=== PATIENT | female | born 1995 | race Caucasian/White ===

== ENCOUNTER → 2021-10-19 08:16 | Outpatient (CLI) | payer BC, SELFPAY ==
--- NOTE | ~2021-10-19 | MR_ITS ---
EXAMINATION: MR knee RT wo con DATE: 10/19/2021 09:31 INDICATION: Analyzed right knee pain TECHNIQUE: Magnetic resonance imaging (MRI) of the right knee was performed without intravenous contr ast. Sequences included coronal PD-weighted FSE, coronal PD-weighted FS FSE, sagittal T2-weighted FS E, sagittal PD-weighted FS FSE and axial PD weighted fat saturated FSE. COMPARISON: None. FINDINGS: Medial compartment: Medial meniscus is normal. Articular cartilage is normal. Lateral compartment: Lateral meniscus is normal. Articular cartilage is normal. Patellofemoral compartment: There is deep chondral fissuring with underlying cortical irregularity at the patella and along the a pical ridge and extending into the immediately adjacent medial and lateral facets. There are multiple tiny drill tracts extending anteroposteriorly through the patella to the subchondral bone suggesting possible prior for a patellar osteochondral lesion. Correlate with surgical history. Trochlear carti geovany is normal. Ligaments and tendons: Anterior and posterior cruciate ligaments are normal. The medial collateral ligament and fibular vance ateral ligament complex are normal. The extensor mechanism is normal. The visualized medial and later al hamstring tendons as well as the iliotibial band are normal. Fluid: Physiologic amount of fluid in the joint space. No loose osteochondral bodies identified. Osseous/other: Normal marrow signal. No fracture or pathologic marrow replacing process. IMPRESSION: 1. Deep chondral fissuring and underlying irregularity to the articular cortex at the central patella where there are changes suggesting prior drilling for microfracture treatment of an osteochondral le perez. Correlate with surgical history. 2. Otherwise normal right knee MRI with normal menisci and cartilage in the medial and lateral compar tments and normal stabilizing ligaments. Reviewed, dictated and finalized at location A. MILL SET UP OPERATOR IMPRESSION: 1. Deep chondral fissuring and underlying irregularity to the articular cortex at the central patella where there are changes suggesting prior drilling for mi crofracture treatment of an osteochondral lesion. Correlate with surgical histo ry. 2. Otherwise normal right knee MRI with normal menisci and cartilage in the med ial and lateral compartments and normal stabilizing ligaments.
== END ==
PROVIDERS: PCP Family Medicine; Visit Provider Orthopaedic Surgery
DX: M25.561 Pain in right knee (principal)
CPT/HCPCS: 73721

== ENCOUNTER → 2021-11-30 00:23 | Outpatient (CLI) | payer BC, SELFPAY ==
[2021-11-30 22:40] LABS: SARS-CoV-2 RNA PCR Negative
== END ==
PROVIDERS: PCP Family Medicine; Visit Provider Orthopaedic Surgery
DX: Z01.812 Encounter for preprocedural laboratory examination (principal); Z20.822 Contact with and (suspected) exposure to COVID-19
CPT/HCPCS: C9803; U0003; U0005

== ENCOUNTER 2021-12-04 01:08 | Day surgery (SDC) | payer BC, SELFPAY ==
[2021-12-03 10:37] VITALS: BMI 24.7
--- NOTE | 2021-12-03 10:51 | PC.NURSE ---
Report to the Outpatient Waiting Room, entrance under the green pavilion located off [facility], at time 0830 on date 12/04/21. OR Time: 1030. - You will be asked a series of questions to screen for COVID 19 for your protection. - A mask is required within the hospital. - No visitors are allowed at this time. Preoperative COVID Testing Requirements: COVID TEST 11/30 - NEGATIVE No COVID Test needed if: (proof is required; if not received patient will have Rapid Test prior to entry) - Patient has received COVID Vaccine at least 14 days prior to procedure date or - Patient has positive COVID test result within last 90 days of surgery date. COVID Test needed if above criteria is not met If not COVID vaccinated a COVID test must be conducted within 72 hours of surgery and patient is asked to isolate self from time of testing until procedure. You will go to the [facility] for your COVID testing. The [employer] [facility] site is located at the corner of [address] [facility]. You will only be called if COVID results are positive and your surgeon may reschedule your elective surgery date. Patients may have clear liquids (water, carbonated beverages, clear teas, apple juice) until 3 hours prior to surgery with a maximum of 20 ounces. - No food from midnight until time of surgery Take the following medications with a SIP of water the morning of surgery: BUSPIRONE, CONTROL Medications to discontinue per physician: N/A Date to take last dose: N/A Please no make-up, nail irish, hairspray, perfume, deodorant, or body powder the day of surgery. No jewelry (including any body piercings) or valuables the day of surgery, leave them at home. Please take a shower or bath the night before, or the morning of, surgery with an antibacterial soap. Wear comfortable, loose fitting clothing. - Jewelry must be removed prior to entering the operating room. Rings and piercings that are not removed may be cut off. - The hospital will not accept responsibility for valuables. - Please leave all valuables, including medications, at home the day of surgery. If you are going home after surgery, a licensed restaurant delivery driver must drive you home. - NO public transportation without another adult. - We recommend that an adult stay with you for 24 hours following discharge. - We also recommend that you do not drive, make important decision, drink alcoholic beverages, or take any drugs that were not prescribed by your health care provider for at least 24 hours after your discharge time. Follow any additional instructions given to you from your surgeon. Telephone instructions given to LUCIO RYAN and asked if any additional questions and then verbalized understanding. Patient advised to call surgeon office or pre surgery nurse liaison [phone] if any additional questions.
[2021-12-04] VITALS (8 sets, daily range): BP systolic 132–165; BP diastolic 85–99; PULSE 64–110; RESP 12–18; TEMP 36.1–36.9; O2SAT 99–100
--- NOTE | 2021-12-04 07:16 | WPDHPUPDATE1 ---
History and Physical Update Update Date/Time: 12/04/21 07:16 History and Physical has been reviewed, including an updated exam of the patient. There are NO changes in the patient's condition. Risks, benefits, and alternatives have been discussed and questions answered. Patient agrees to proceed with procedure.
--- NOTE | 2021-12-04 07:46 | WPDANESEPPF ---
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 Patient Data Age: 26 Gender: F Height: 1.57 m Weight: 61.24 kg Allergies Allergy/AdvReac Type Severity Reaction Status Date / Time No Known Allergies Allergy Verified 12/04/21 09:08 Home Medications Medication Instructions Recorded Confirmed Type aluminum chloride 20 % topical 1 applic TOPICAL 2XW PRN #60 ml 06/15/20 12/04/21 Rx solution buspirone 5 mg tablet 5 mg PO BID #60 tablet 11/05/21 12/04/21 Rx norgestimate-ethinyl estradiol 1 tablet PO DAILY 12/03/21 12/04/21 History [Sprintec (28)] Patient hx anesthesia problems: none Family hx anesthesia problems: none Results Review: All pre-operative results and documents have been reviewed as part of the pre-operative evaluation. [facility] Past Medical History Medical History (Updated 12/03/21 @ 11:44 by Jose Fisher DO) Anxiety Right knee pain Social History Social History (Updated 12/02/21 @ 11:24 by Nani Romo MA) Tobacco type: e-cigarettes/vaping Alcohol intake: current Alcohol use details: 1/MONTH Substance use: never Substance use type: does not use Living arrangements: with family Additional occupation/education comments: Teacher Gender identity (if verbalized by the patient): Female Sexual Orientation (if Verbalized by the Patient): Straight or Heterosexual Spiritual care concerns: No Anes - Eval Final PreProcedure Day of Procedure 12/04/21 07:46 Patient weight: normal Heart: regular rate and rhythm Lungs: clear to auscultation and normal air movement Airway: Mallampati scale class II Neurological: alert and oriented Last oral intake: >/= 8 hours ASA classification: II Emergent: no Anesthetic plan: proceed Anesthesia type and monitoring: general LMA and standard monitoring Results Review: All pre-operative results and documents have been reviewed as part of the pre-operative evaluation. Informed Consent: The patient's anesthetic plan and its attendant risks and benefits were discussed with the patient/family/POA. Questions were solicited and answers provided to the satisfaction of the patient/family/POA.
[2021-12-04] MEDS: CELECOXIB 200 MG CAPSULE PO (09:10)
[2021-12-04] MEDS: ACETAMINOPHEN 500 MG TABLET 1000 MG PO (09:10)
[2021-12-04] MEDS: LACTATED RINGERS 1,000 ML 30 ML IV CONT ×2 (09:45→13:45)
[2021-12-04] MEDS: ceFAZolin 2 GM/D5W 50 ML 2 GM/50 ML BAG IVPB (11:58)
[2021-12-04] MEDS: BUPIVACAINE HCL 0.5% PF 30 ML VIAL 10 ML INFILTRATE (12:43)
[2021-12-04] MEDS: fentaNYL CITRATE INJ (*CRX) 100 MCG/2 ML VIAL 25 MCG IV PUSH ×5 (13:52→14:23)
--- NOTE | 2021-12-04 13:57 | W.PM.PROC2 ---
Procedure Note - Detailed Date of Procedure 12/04/21 Pre-op Diagnosis Rt Knee Chrondromalacia Patella Post-op Diagnosis same Procedure Performed RIGHT KNEE SCOPE WITH CHONDROPLASTY AND LATERAL RELEASE AND MAJOR SYNOVECTOMY Surgeon Qeu Villa MD Anesthesia general Description of Procedure PATIENT WAS TAKEN TO THE OPERATING ROOM SUITE. ANESTHESIA WAS INDUCED. THE RIGHT LEG WAS PREPPED AND DRAPED STERILE. TROCARS WERE PLACED IN TO THE KNEE JOINT IN THE USUAL FASHION. THE CAMERA WAS INTRODUCED. THERE WAS SEVERE CHONDROMALACIA TO THE PATELLA. THERE WAS MINIMAL IN THE TROCHLEA. THERE WAS A LOT OF SYNOVITIS IN ALL COMPARTMENTS. THE MEDIAL COMPARTMENT SHOWED NO CHONDROMALACIA TO THE MEDIAL FEMORAL CONDYLE OR PLATEAU. THERE WAS NO MEDIAL MENISCUS TEAR. THE ACL WAS INTACT. THE LATERAL MENISCUS WAS INTACT AND THERE WAS O TEAR. THE LATERAL COMPARTMENT HAD NO CHONDROMALACIA AT THE LATERAL PLATEAU OR LATERAL FEMORAL CONDYLE. A SYNOVECTOMY WAS PREFORMED. THE PATELLO FEMORAL JOINT UNDERWENT CHONDROPLASTY OVER THE PATELLA. THERE WAS GRADE 3 CHONDROMALACIA IN A SMALL SECTION OF THE OF THE PATELLA. SYNOVECTOMY WAS PREFORMED IN THE SUPERIOR MEDIAL COMPARTMENT. THE PATELLA WAS TRACKING WITH SOME LATERAL DISPLACEMENT. A LATERAL RETINACULAR RELEASE WAS PREFORMED PROXIMAL TO DISTAL. THE PATELLA WAS RECHECKED AND TRACKING SHOWED GOOD EXCURSION THROUGH THE GROOVE. THE BLEEDERS WERE CAUTERIZED. THE INSTRUMENTATION WAS REMOVED. THE WOUNDS WERE APPROXIMATED WITH 4.0 NYLON. STERILE DRESSING WAS APPLIED. PATIENT WAS EXTUBATED. Estimated Blood Loss -5.0 Complications No immediate complications Condition stable Disposition PACU
--- NOTE | 2021-12-04 14:13 | SUR.PHASEI ---
Simple mask removed at 1412.
[2021-12-04] MEDS: oxyCODONE HCL (*CRX) 5 MG TAB IR PO (15:19)
== END 2021-12-04 15:58 | disposition home or self-care (01) ==
PROVIDERS: PCP Family Medicine; Visit Provider Orthopaedic Surgery
PROC: (CPT 29870; principal; 2021-12-04 10:30)
DX: M22.41 Chondromalacia patellae, right knee (principal); M65.861 Other synovitis and tenosynovitis, right lower leg; F41.9 Anxiety disorder, unspecified; F17.290 Nicotine dependence, other tobacco product, uncomplicated
CPT/HCPCS: 29873; 29876; A9270; J0690; J1100; J2250; J2370; J2405; J2704; J3010; J7120

== ENCOUNTER 2024-10-29 20:56 | Emergency (ER) | payer SELFPAY ==
--- NOTE | ~2024-10-29 | XR_ITS ---
EXAMINATION: XR lumbar spine 2-3V DATE: 10/30/2024 05:17 INDICATION: Low back pain. TECHNIQUE: 3 views of lumbar spine were obtained. COMPARISON: None. FINDINGS: Bone alignment is normal. Vertebral body heights and intervertebral disc heights are normal . There is multilevel mild facet joint osteoarthritis. IMPRESSION: 1. Mild lumbar facet joint osteoarthritis. Reviewed, dictated and finalized at location A. SIOLOGY PROFESSOR
--- NOTE | ~2024-10-29 | XR_ITS ---
EXAMINATION: XR thoracic spine 3V DATE: 10/30/2024 09:03 INDICATION: Low back pain. Fall. TECHNIQUE: 3 views of thoracic spine on 4 radiographs were obtained. COMPARISON: None. FINDINGS: Alignment is normal. Vertebral body heights and intervertebral disc heights are normal. The facet joints are unremarkable. IMPRESSION: 1. Normal thoracic spine. Reviewed, dictated and finalized at location A. NSTITCH FELLED SEAM OPERATOR IMPRESSION: 1. Normal thoracic spine.
--- NOTE | ~2024-10-29 | CT_ITS ---
EXAMINATION: CT brain wo con DATE: 10/30/2024 05:59 INDICATION: Head injury. TECHNIQUE: Computed tomography (CT) of the head was performed without intravenous contrast. The mA wa s adjusted according to patient size. Iterative reconstruction technique was employed. The dose-lengt h product was 681.00 mGy-cm. COMPARISON: None FINDINGS: There is no intracranial hemorrhage, acute infarction, or abnormal intracranial mass lesion . The ventricles are normal in size. There is mild mucosal thickening in the paranasal sinuses. The o rbits are normal. The mastoid air cells are normal. IMPRESSION: 1. Normal brain. Reviewed, dictated and finalized at location A. LESS INTERNET INSTALLER IMPRESSION: 1. Normal brain.
--- NOTE | ~2024-10-29 | CT_ITS ---
EXAMINATION: CT cervical spine wo con DATE: 10/30/2024 05:59 INDICATION: Head injury. TECHNIQUE: Computed tomography (CT) of the cervical spine was performed without intravenous contrast. Automated exposure control and iterative reconstruction technique were employed. The dose-length pro duct was 103.62 mGy-cm. COMPARISON: None FINDINGS: There is kyphosis of cervical spine. Vertebral body heights and intervertebral disc heights are normal. The facet joints are normal. No neural foraminal stenosis or central canal stenosis. IMPRESSION: 1. No fracture. Reviewed, dictated and finalized at location A. RINARY MICROBIOLOGIST IMPRESSION: 1. No fracture.
[2024-10-29 21:21] VITALS: BP 166/93; PULSE 119; RESP 16; TEMP 36.9; O2SAT 100
[2024-10-30 01:51] VITALS: BP 101/58; PULSE 81; RESP 18; TEMP 36.5; O2SAT 100
[2024-10-30 04:04] LABS: BEDSIDEPREGUCG Negative (Negative)
[2024-10-30 08:30] VITALS: BP 106/72; PULSE 72; RESP 16; O2SAT 98
--- NOTE | 2024-10-30 08:33 | PC.NURSE ---
Pt. requesting something for my headache. MD Horton notified. See MAR for intervention ordered by MD. Pt. and family updated.
--- NOTE | 2024-10-30 08:35 | ED_ITS ---
HPI - General Adult General Chief complaint: Back Pain/Injury Stated complaint: head and back pain Time Seen by Provider: 10/30/24 08:35 Source: patient and family Mode of arrival: ambulatory Limitations: no limitations History of Present Illness HPI narrative: 28 YEARS OLD WHITE FEMALE, WAS GOING BACKWARD ON THE PLAYGROUND, LOST BALANCE AND FELL BACKWARD HIT THE BACK OF HER HEAD ON THE GROUND, LOSS OF CONSCIOUSNESS, 5 DAYS AGO. PATIENT COMPLAINING OF NOT FEELING WELL, INTERMITTENT NAUSEA AND DIZZINESS, DECREASED APPETITE, LOWER BACK PAIN, INTERMITTENT LEFT LOWER LEG NUMBNESS, FRONTAL HEADACHE, THROBBING, HISTORY OF HEADACHE AT LEAST ONCE A WEEK UNKNOWN DIAGNOSIS, PATIENT IS TELLING ME THAT HER HEADACHE RIGHT NOW IS DIFFERENT THAN THE 1 SHE USED TO HAVE ONCE A WEEK. SHE DENIES ANY FEVER OR CHILLS OR VOMITING. Related Data Allergies Allergy/AdvReac Type Severity Reaction Status Date / Time No Known Allergies Allergy Verified 10/29/24 21:28 Review of Systems Review of Systems: All systems reviewed & are unremarkable except as noted in HPI and below PMFSH Past Medical History Medical History Anxiety Right knee pain Surgical History Surgical History Hx of arthroscopy of right knee 12/04/21 Social History Social History Tobacco type: e-cigarettes/vaping Alcohol intake: current Alcohol use details: 1/MONTH Substance use: never Substance use type: does not use Living arrangements: with family Occupation/Education: occupation Additional occupation/education comments: Teacher Gender identity (if verbalized by the patient): Female Sexual Orientation (if Verbalized by the Patient): Straight or Heterosexual Spiritual care concerns: No Exam Narrative: GENERAL APPEARANCE: WELL-DEVELOPED, WELL-NOURISHED SKIN: NORMAL COLOR HEAD: NORMOCEPHALIC, NONTRAUMATIC EYES: CLEAR CONJUNCTIVA ENT: OROPHARYNX NORMAL, EARS NORMAL, NOSE NORMAL NECK: SUPPLE, NONTENDER CHEST AND RESPIRATORY: AIRWAY PATENT, NO RESPIRATORY DISTRESS, NO ACCESSORY MUSCLE USE HEART: REGULAR RATE/RHYTHM ABDOMEN: SOFT, NONTENDER, NO ORGANOMEGALY, QUIET BOWEL SOUNDS VASCULAR: NORMAL PERIPHERAL PULSES, NORMAL CAPILLARY REFILL. MUSCULOSKELETAL: DIFFUSE TENDERNESS ALONG THE DISTAL THORACIC AND LUMBAR AREA, NO BRUISES, NO SWELLING OR RASH NEUROLOGIC: ALERT AND ORIENTED ?3, CHEMISTRY LABORATORY TECHNICIAN IS NORMAL TESTED, NO GROSS MOTOR DEFICIT Course Vital Signs Vital signs: Vital Signs Temperature 36.9 C 10/29/24 21:21 Pulse Rate 119 H 10/29/24 21:21 Respiratory Rate 16 10/29/24 21:21 Blood Pressure 166/93 H 10/29/24 21:21 Pulse Oximetry 100 10/29/24 21:21 Oxygen Delivery Room Air 10/29/24 21:21 Temperature 36.5 C 10/30/24 01:51 Pulse Rate 60 10/30/24 09:40 Respiratory Rate 14 10/30/24 09:40 Blood Pressure 113/75 10/30/24 09:40 Pulse Oximetry 100 10/30/24 09:40 Oxygen Delivery Room Air 10/29/24 21:21 Medical Decision Making MDM Narrative Medical decision making narrative: PATIENT HAD A FALL, STRUCK THE BACK OF THE HEAD ON THE GROUND, POSITIVE LOSS OF CONSCIOUSNESS 5 DAYS AGO. VITAL SIGNS SHOWING BLOOD PRESSURE 166/93, PAIN AND STRESS RELATED IS HIGH LIKE LY HOME PHYSICAL EXAMINATION SHOWING DIFFUSE TENDERNESS AT THE DISTAL THORACIC AND LUMBAR AREA DIFFERENTIAL DIAGNOSIS SKULL FRACTURE, INTRACRANIAL HEMORRHAGE, POST CONCUSSION SYNDROME, LOWER BACK MUSCULAR PAIN VERSUS FRACTURE CT HEAD, CT CERVICAL SPINE, X-RAY OF THE LUMBAR AND THORACIC SPINE SHOWED NO ACUTE ABNORMALITIES Differential Diagnosis Differential Diagnosis: . ABOVE Vital Signs Vital Signs: Vital Signs Temperature 36.9 C 10/29/24 21:21 Pulse Rate 119 H 10/29/24 21:21 Respiratory Rate 16 10/29/24 21:21 Blood Pressure 166/93 H 10/29/24 21:21 Pulse Oximetry 100 10/29/24 21:21 Oxygen Delivery Room Air 10/29/24 21:21 Temperature 36.5 C 10/30/24 01:51 Pulse Rate 60 10/30/24 09:40 Respiratory Rate 14 10/30/24 09:40 Blood Pressure 113/75 10/30/24 09:40 Pulse Oximetry 100 10/30/24 09:40 Oxygen Delivery Room Air 10/29/24 21:21 Lab Data Labs: Lab Results 10/30/24 Range/Units 04:02 POC Urine HCG, Qual Negative (Negative) Imaging Data My impression: Impressions Lumbar Spine X-Ray 10/30/24 05:59 IMPRESSION: 1. Mild lumbar facet joint osteoarthritis. Head CT 10/30/24 06:01 IMPRESSION: 1. Normal brain. Cervical Spine CT 10/30/24 06:17 IMPRESSION: 1. No fracture. Thoracic Spine X-Ray 10/30/24 09:08 IMPRESSION: 1. Normal thoracic spine. Radiologist's impression: Impressions Lumbar Spine X-Ray 10/30/24 05:59 IMPRESSION: 1. Mild lumbar facet joint osteoarthritis. Head CT 10/30/24 06:01 IMPRESSION: 1. Normal brain. Cervical Spine CT 10/30/24 06:17 IMPRESSION: 1. No fracture. Critical Care Time Critical Care Time Critical Care Time: No Discharge Plan Discharge Clinical Impression: Post concussion syndrome, Lower back pain Patient Disposition: Home, Self-Care Condition: Stable Instructions: Acute Low Back Pain (ED), Post Concussion Syndrome (ED) Additional Instructions: RETURN IF SYMPTOMS ARE WORSENING , CALL YOUR FAMILY PHYSICIAN FOR APPOINTMENT, TAKE TYLENOL NEEDED FOR ACHES AND PAIN, CONTINUE HOME MEDICATIONS. Prescriptions: New naproxen [Naprosyn] 500 mg tablet 500 mg PO BID PRN (Reason: pain) Qty: 14 0RF No Action aluminum chloride [Drysol Dab-O-Matic] 20 % solution 1 applic TOPICAL 2XW PRN (Reason: excessive sweating) Qty: 60 1RF hydroxyzine pamoate [Vistaril] 50 mg capsule 50 mg PO BID PRN (Reason: pain (scale score 7-10)) Qty: 30 0RF hydrocodone-acetaminophen 7.5-325 mg tablet 1 tablet PO Q8H PRN (Reason: pain) Qty: 30 0RF norgestimate-ethinyl estradiol [Anel] 0.25-35 mg-mcg tablet See Rx Instructions .ROUTE .COMPLEX Qty: 28 11RF Dose Instruction: TAKE 1 TABLET BY MOUTH EVERY DAY Rx Instructions: TAKE 1 TABLET BY MOUTH EVERY DAY buspirone 5 mg tablet 5 mg PO BID Qty: 60 5RF Follow-up/Referrals: Gian Ross MD [Primary Care Provider] - Bertin Brizuela MD [Physician] - 11/02/24 Stand Alone Forms: Work/School Release IP
[2024-10-30] MEDS: HYDROmorphone HCL INJ (*CRX) 1 MG/ML SYR 0.5 MG IV PUSH (09:39)
[2024-10-30] MEDS: KETOROLAC 30 MG/ML VIAL (*BKC) IV PUSH (09:39)
[2024-10-30] MEDS: ONDANSETRON INJ 4 MG/2 ML VIAL IV PUSH (09:39)
[2024-10-30 09:40] VITALS: BP 113/75; PULSE 60; RESP 14; O2SAT 100
[2024-10-30] MEDS: SODIUM CHLORIDE 0.9% IV 1,000 ML 999 ML IV CONT (09:40)
[2024-10-30 11:35] VITALS: BP 123/87; PULSE 100; RESP 14; TEMP 36.7; O2SAT 97
== END 2024-10-30 11:35 | disposition home or self-care (01) ==
PROVIDERS: Emergency Medicine; Emergency Provider Emergency Medicine; PCP Family Medicine
DX: F07.81 Postconcussional syndrome (principal); M54.50 Low back pain, unspecified; F17.290 Nicotine dependence, other tobacco product, uncomplicated; Z79.899 Other long term (current) drug therapy; M47.816 Spondylosis without myelopathy or radiculopathy, lumbar region; W18.39XA Other fall on same level, initial encounter
CPT/HCPCS: 70450; 72072; 72100; 72125; 81025; 96361; 96374; 96375; 99284; J1171; J1885; J2405; J7030